=== PATIENT | female | born 1985 ===

== ENCOUNTER 2016-09-14 14:28 | Inpatient (IN) | payer OTHER, BC ==
[~2016-09-14] VITALS: Ht 162.6 cm; Wt 106.4 kg
[2016-10-16] VITALS (8 sets, daily range): BP systolic 123–145; BP diastolic 65–90; PULSE 82–106; TEMP 98.1–98.4
[2016-10-16] MEDS ORDERED: PRENATAL MVI PO (19:26)
[2016-10-16 20:10] LABS: BASO % 0.3 % (0.0-2.0); EOS # 0.1 (0.0-0.7); EOS % 0.5 % (0-4.0); GRAN # 11.4 (1.4-6.5); GRAN % 76.1 % (42.2-75.2); HEMOGLOBIN 12.1 g/dl (12.5-16.0); LYMPH # 2.7 (1.2-3.4); LYMPH % 18.2 % (20.0-51.0); MEAN CELL VOLUME 85 fl (80.0-100.0); MEAN CORPUSCULAR HEMOGLOBIN 30 pg (27.0-31.0); MEAN CORPUSCULAR HGB CONC 35 g/dl (33.0-37.0); MEAN PLATELET VOLUME 10.6 fl (7.4-10.4); MONO # 0.6 (0.1-0.6); PLATELET COUNT 213 K/mm3 (130-400); RED BLOOD COUNT 4.03 M/mm3 (4.10-5.30); REDCELL DISTRIBUTION WIDTH-CV 13.3 % (11.5-14.5)
[2016-10-16 20:11] LABS: HEMATOCRIT 34.3 % (37.0-47.0)
[2016-10-17] VITALS (67 sets, daily range): BP systolic 110–151; BP diastolic 58–88; PULSE 60–114; TEMP 98.1–98.8
[2016-10-18] VITALS: BP 114/68; PULSE 74
[2016-10-18 01:00] VITALS: BP 116/68; PULSE 72
[2016-10-18 07:21] VITALS: BP 123/72; PULSE 89; TEMP 97.6
[2016-10-18 07:45] LABS: BASO % 0.2 % (0.0-2.0); EOS % 0.2 % (0-4.0); GRAN # 15.1 (1.4-6.5); GRAN % 82.7 % (42.2-75.2); LYMPH % 11.1 % (20.0-51.0); MEAN CELL VOLUME 88 fl (80.0-100.0); MEAN CORPUSCULAR HGB CONC 34 g/dl (33.0-37.0); MEAN PLATELET VOLUME 10.6 fl (7.4-10.4); MONO # 0.9 (0.1-0.6); PLATELET COUNT 199 K/mm3 (130-400); RED BLOOD COUNT 3.66 M/mm3 (4.10-5.30); REDCELL DISTRIBUTION WIDTH-CV 13.5 % (11.5-14.5); WHITE BLOOD COUNT 18.2 K/mm3 (4.8-10.8)
[2016-10-18 08:02] LABS: HEMATOCRIT 32.2 % (37.0-47.0); HEMOGLOBIN 10.9 g/dl (12.5-16.0); MEAN CORPUSCULAR HEMOGLOBIN 30 pg (27.0-31.0)
[2016-10-18 16:30] VITALS: BP 121/67; PULSE 89; TEMP 97.9
[2016-10-18 21:00] VITALS: BP 118/70; PULSE 85; TEMP 97.6
[2016-10-19 07:00] VITALS: BP 117/80; PULSE 81; TEMP 98.3
[2016-10-19 07:55] LABS: MEAN CELL VOLUME 88 fl (80.0-100.0); MEAN CORPUSCULAR HGB CONC 34 g/dl (33.0-37.0); MEAN PLATELET VOLUME 10.2 fl (7.4-10.4); PLATELET COUNT 178 K/mm3 (130-400); RED BLOOD COUNT 3.32 M/mm3 (4.10-5.30)
[2016-10-19 07:57] LABS: HEMATOCRIT 29.3 % (37.0-47.0); MEAN CORPUSCULAR HEMOGLOBIN 30 pg (27.0-31.0)
[2016-10-19 08:07] LABS: ADJUSTED CALCIUM 9.2 mg/dL (8.4-10.2); ALBUMIN 2.5 gm/dL (3.5-5.0); BILIRUBIN,TOTAL 0.5 mg/dL (0.0-1.0); CREATININE, serum 0.6 mg/dL (0.52-1.25); POTASSIUM 3.7 mmol/L (3.4-5.0); TOTAL PROTEIN 5.4 gm/dL (6.4-8.2)
[2016-10-19] MEDS ORDERED: PERCOCET 325 MG1 TA2 PO (11:15)
[2016-10-19] MEDS ORDERED: LASIX 20MG TABL20 MG PO (11:15)
[2016-10-19] MEDS ORDERED: IBU800 M1 PO (11:15)
== END 2016-10-19 16:30 | disposition home or self-care (01) | DRG 766 ==
LOC: LDRO 10-14 14:28 → EDSTATUS 10-14 15:33 → OB 10-16 15:38 → LDR 10-16 19:06 → OB 10-16 19:06
PROVIDERS: Student in an Organized Health Care Education/Training Program
PROC: 10D00Z1 Extraction of Products of Conception, Low, Open Approach (ICD-10-PCS; principal; 2016-10-17)
PROC: 3E033VJ Introduction of Other Hormone into Peripheral Vein, Percutaneous Approach (ICD-10-PCS; 2016-10-17)
DX: O13.3 Gestational [pregnancy-induced] hypertension without significant proteinuria, third trimester (principal); O34.83 Maternal care for other abnormalities of pelvic organs, third trimester; E28.2 Polycystic ovarian syndrome; O48.0 Post-term pregnancy; O62.1 Secondary uterine inertia; O76 Abnormality in fetal heart rate and rhythm complicating labor and delivery; Z3A.40 40 weeks gestation of pregnancy; Z37.0 Single live birth
CPT/HCPCS: J0690; J1885; J1940; J2175; J2270; J2370; J2400; J2405; J2590; J2795; J7120

== ENCOUNTER 2016-10-27 13:28 | Outpatient (CLI) | payer OTHER, BC ==
[~2016-10-27] VITALS: Ht 162.6 cm; Wt 93.0 kg
[~2016-10-27 13:28] MED LIST: IBU800 M1 PO; LASIX 20MG TABL20 MG PO; PERCOCET 325 MG1 TA2 PO; PRENATAL MVI PO
[2016-10-27 14:08] VITALS: BP 119/74; PULSE 106; TEMP 98.3
== END 2016-10-27 15:25 | disposition home or self-care (01) ==
LOC: EUO 13:28
DX: T81.4XXA Infection following a procedure, initial encounter (principal)
CPT/HCPCS: J0696

== ENCOUNTER 2018-03-20 05:48 | Inpatient (IN) | payer BC ==
[~2018-03-20] VITALS: Ht 162.6 cm; Wt 99.1 kg
[2018-03-20] VITALS (17 sets, daily range): BP systolic 110–135; BP diastolic 58–93; PULSE 64–107; TEMP 97.4–98.3
[2018-03-20 06:28] LABS: BASO # 0.1 (0.0-0.2); BASO % 0.4 % (0.0-2.0); EOS # 0.2 (0.0-0.7); EOS % 1.3 % (0-4.0); GRAN # 7.3 (1.4-6.5); HEMOGLOBIN 12.1 g/dl (12.5-16.0); LYMPH % 26.5 % (20.0-51.0); MEAN CELL VOLUME 85 fl (80.0-100.0); MEAN CORPUSCULAR HEMOGLOBIN 29 pg (27.0-31.0); MEAN CORPUSCULAR HGB CONC 34 g/dl (33.0-37.0); MEAN PLATELET VOLUME 10.6 fl (7.4-10.4); MONO # 0.7 (0.1-0.6); MONO % 6.4 % (1.7-9.3); PLATELET COUNT 200 K/mm3 (130-400); RED BLOOD COUNT 4.14 M/mm3 (4.10-5.30); REDCELL DISTRIBUTION WIDTH-CV 13.4 % (11.5-14.5)
[2018-03-20 06:30] LABS: HEMATOCRIT 35.3 % (37.0-47.0)
[2018-03-21 01:15] VITALS: BP 112/62; PULSE 80; TEMP 97.6
[2018-03-21 07:55] VITALS: BP 106/71; PULSE 71; TEMP 97.7
[2018-03-21] MEDS ORDERED: IBU800 M1 PO (09:30)
[2018-03-21] MEDS ORDERED: PERCOCET 325 MG1 TA2 PO (09:30)
[2018-03-21 21:00] VITALS: BP 101/66; PULSE 72; TEMP 98.1
[2018-03-22 09:08] VITALS: BP 122/65; PULSE 75; TEMP 97.8
== END 2018-03-22 11:45 | disposition home or self-care (01) | DRG 788 ==
LOC: OB 05:48 → LDR 11:37 → OB 03-22 11:45
PROVIDERS: Student in an Organized Health Care Education/Training Program
PROC: 10D00Z1 Extraction of Products of Conception, Low, Open Approach (ICD-10-PCS; principal; 2018-03-20)
DX: O34.211 Maternal care for low transverse scar from previous cesarean delivery (principal); Z3A.39 39 weeks gestation of pregnancy; Z37.0 Single live birth; O99.214 Obesity complicating childbirth; E28.2 Polycystic ovarian syndrome
CPT/HCPCS: J0690; J1885; J2405; J2590; J3010; J7120

== ENCOUNTER 2021-05-04 07:40 | Inpatient (IN) | payer BC ==
[~2021-05-04] VITALS: Ht 165.1 cm; Wt 105.0 kg
[2021-05-05] VITALS (17 sets, daily range): BP systolic 111–134; BP diastolic 53–86; PULSE 64–100; TEMP 98.1–98.6
--- NOTE | 2021-05-05 05:50 | NUR ---
Ambulatory to unit for scheduled repeat C/S, accompanied by spouse.
[2021-05-05 06:21] LABS: BASO % 0.3 % (0.0-2.0); EOS # 0.1 K/mm3 (0.0-0.7); EOS % 0.6 % (0.0-4.0); GRAN # 9.7 K/mm3 (1.4-6.5); GRAN % 74.7 % (42.2-75.2); HEMOGLOBIN 11.4 g/dl (12.5-16.0); LYMPH # 2.2 K/mm3 (1.2-3.4); LYMPH % 17.3 % (20.0-51.0); MEAN CELL VOLUME 83 fl (80.0-100.0); MEAN CORPUSCULAR HEMOGLOBIN 28 pg (27-31); MEAN CORPUSCULAR HGB CONC 34 g/dl (33.0-37.0); MONO # 0.8 K/mm3 (0.1-0.6); MONO % 6.3 % (1.7-9.3); PLATELET COUNT 216 K/mm3 (130-400); RED BLOOD COUNT 4.02 M/mm3 (4.10-5.30); REDCELL DISTRIBUTION WIDTH-CV 13.9 % (11.5-14.5)
[2021-05-05] MEDS ORDERED: PEPCID 20MG TAB20 MG PO (06:23)
[2021-05-05 06:36] LABS: HEMATOCRIT 33.3 % (37.0-47.0)
--- NOTE | 2021-05-05 09:03 | NUR ---
Initial visit; Parents thanked for offering congratulations for the of their child. Casino Attendant thanked family for choosing [facility].
--- NOTE | 2021-05-05 13:40 | NUR ---
Patient ambulates to bathroom with standby assist, metz catheter removed and patient tolerates well, pericare done, new gown/underwear/pad and binder on. Patient ambulating room at this time.
--- NOTE | 2021-05-05 18:30 | NUR ---
REPORT REC'D FROM ALEXANDRE DAVIDSON/ TRANSFER OF CARE. POC D/W PT AND SPOUSE AND DEMONSTRATES UNDERSTANDING. PAIN MANAGEMENT OPTIONS D/W PT. PT REPORTS SHE IS PASSING GAS AND ABLE TO EAT W/O ANY C/O NAUSEA.
--- NOTE | 2021-05-05 21:00 | NUR ---
H20 JUG REFILLED. FAMILY AT BS. MOTHER ABLE TO LATCH INDEPENDENTLY W/O ANY ASSIST FROM RN. PT VOIDED AND URINE CLEAR WITH RED TINGE. NO BLOOD CLOTS PASSED. MEASURED VOIDS COMPLETED. TRASH REMOVED FROM PT'S ROOM. CALL LIGHT WITHIN REACH. PT DENIES ANY ADDITIONAL NEEDS AT THIS TIME.
--- NOTE | 2021-05-05 22:00 | NUR ---
PT SITTING UP IN BED HOLDING . JUST GOT DONE . PER MATERNAL REQUEST SO THAT SHE CAN REST, TO BE TAKEN TO NURSERY. H20 JUG REFILLED. IBUPROFEN PO AND PERCOCET X 1 TAB PO GIVEN. VSS. CALL LIGHT WITHIN REACH. PT DENIES ANY ADDITIONAL NEEDS AT THIS TIME.
--- NOTE | 2021-05-06 00:10 | NUR ---
BABY BROUGHT BACK TO ROOM WITH MOM. PT REPORTS SHE HAS BEEN ABLE TO GET SOME REST. PUT TO BREAST. MOM DENIES ANY NEEDS AT THIS TIME. ABDOMINAL BINDER REMAINS IN PLACE. PT ABLE TO VOID W/O ANY DIFFICULTY. PT REPORTS PAIN IS MINIMAL AT THIS TIME. CALL LIGHT WITHIN REACH.
[2021-05-06 04:25] VITALS: BP 122/74; PULSE 68; TEMP 97.8
[2021-05-06 07:45] VITALS: BP 123/67; PULSE 71; TEMP 97.5
[2021-05-06] MEDS ORDERED: IBU800 M1 PO (10:14)
[2021-05-06] MEDS ORDERED: PERCOCET 325 MG1 TA2 PO (10:14)
[2021-05-06 16:45] VITALS: BP 101/64; PULSE 87; TEMP 98
[2021-05-06 19:10] VITALS: BP 130/62; PULSE 89; TEMP 97.5
[2021-05-07 06:30] VITALS: BP 111/70; PULSE 80; TEMP 97.6
--- NOTE | 2021-05-07 06:40 | NUR ---
Rests in bed, alert. Ibuprofen 800 mg given as ordered.
--- NOTE | 2021-05-07 11:00 | NUR ---
Rests in bed, alert. Discharge instructions given, verbalizes understanding.
== END 2021-05-07 11:20 | disposition home or self-care (01) | DRG 788 ==
LOC: OB 05-05 05:39 → LDR 05-05 07:40 → OB 05-07 11:20
PROVIDERS: ADMIT Student in an Organized Health Care Education/Training Program
PROC: 10D00Z1 Extraction of Products of Conception, Low, Open Approach (ICD-10-PCS; principal; 2021-05-05)
DX: O34.211 Maternal care for low transverse scar from previous cesarean delivery (principal); O99.284 Endocrine, nutritional and metabolic diseases complicating childbirth; E28.2 Polycystic ovarian syndrome; O99.62 Diseases of the digestive system complicating childbirth; K21.9 Gastro-esophageal reflux disease without esophagitis; O99.214 Obesity complicating childbirth; O69.81X0 Labor and delivery complicated by cord around neck, without compression, not applicable or unspecified; Z3A.39 39 weeks gestation of pregnancy; Z37.0 Single live birth; Z23 Encounter for immunization
CPT/HCPCS: J0171; J0690; J1885; J2370; J2405; J2590; J7120